=== PATIENT | male | born 1960 | race Caucasian/White ===

== ENCOUNTER 2019-02-08 07:20 | Day surgery (SDC) | payer OTHER, MEDICARE ==
[~2019-02-08] VITALS: Ht 177.8 cm; Wt 65.9 kg
[~2019-02-08 07:20] MED LIST: AMPICILLIN SODIUM 1 GM/VIAL ONE; ASPI81 PO; BENZ2TAB10 PO; CYAN250014 PO; DIPH50 PO; ESCI10TA PO; FOLI1 PO; GABA-529 PO; HALO2 PO; LEVO50 PO; LISI-662 PO; LORA0.5T2 PO; METO25XL PO; MULT-959 PO; OMEG10005 PO; OXYMETAZOLINE HCL 0.05% 15 ML NASAL SPRAY NASAL ONE; RINGERS SOLUTION,LACTATED 1,000 ML IV ONE; SIMV-260 PO
[2019-02-08] MEDS ORDERED: FentaNYL CITRATE-PF 100 MCG/2 ML VIAL IVP PRN (07:30)
[2019-02-08] MEDS ORDERED: MEPERIDINE-PF 25 MG/ML VIAL IVP PRN (07:30)
[2019-02-08] MEDS ORDERED: HYDROmorphone 2 MG/ML SYRINGE IVP PRN (07:30)
[2019-02-08 08:06] LABS: BASOPHILS % (AUTO) 0.8 % (0.0-2.0); HEMATOCRIT 41.5 % (41-53); HEMOGLOBIN 13.6 g/dL (13.5-17.5); LYMPHOCYTES # (AUTO) 0.9 K/uL (1.0-4.8); LYMPHOCYTES % (AUTO) 19.3 % (22.0-44.0); MEAN CORPUSCULAR HEMOGLOBIN 30.8 pg (26.0-34.0); MEAN CORPUSCULAR HGB CONC 32.9 G/dL (31.0-37.0); MEAN CORPUSCULAR VOLUME 94 fL (80-100); MONOCYTES # (AUTO) 0.5 K/uL (0.1-1.0); MONOCYTES % (AUTO) 10.1 % (2.0-9.0); NEUTROPHILS # (AUTO) 3.3 K/uL (1.8-7.7); NEUTROPHILS % (AUTO) 68.8 % (40.0-70.0); PLATELET COUNT (AUTO) 212 K/uL (150-450); RED BLOOD CELL COUNT(AUTO) 4.43 MIL/uL (4.50-5.90); RED CELL DISTRIBUTION WIDTH 13.7 % (11.5-14.5)
[2019-02-08 08:15] LABS: ANION GAP 10 mmol/L (8-16); CALCIUM, TOTAL 9.3 mg/dL (8.8-10.5); CARBON DIOXIDE 25 mmol/L (22-29); CHLORIDE 103 mmol/L (98-107); GLOMERULAR FILTR. RATE CALC > 60 mL/min (>60); GLUCOSE,RANDOM 116 mg/dL (70-110); SODIUM SERUM 138 mmol/L (136-145); UREA NITROGEN, BLOOD 7 mg/dL (7-18)
[2019-02-08 08:20] LABS: ALANINE AMINOTRANSFERASE 22 U/L (12-78); ALBUMIN 3.9 g/dL (3.4-5.0); ALKALINE PHOSPHATASE 92 U/L (46-116); ASPARTATE AMINOTRANSFERASE 21 U/L (15-37); BILIRUBIN,TOTAL 0.7 mg/dL (0.1-1.0); TOTAL PROTEIN, SERUM 7.5 g/dL (6.4-8.2)
[2019-02-08 08:32] LABS: PROTHROMBIN TIME 10.1 SEC (9.4-11.6)
[2019-02-08] MEDS ORDERED: SODIUM CHLORIDE 0.9% 100 ML ONE (09:18)
[2019-02-08] MEDS ORDERED: ONDANSETRON HCL 4 MG/2 ML VIAL IVP ONE (12:00)
[2019-02-08] MEDS ORDERED: FentaNYL CITRATE-PF 100 MCG/2 ML VIAL IVP ONE (12:00)
[2019-02-08] MEDS ORDERED: PROPOFOL 1% 20 ML VIAL IVP ONE (12:00)
[2019-02-08] MEDS ORDERED: SUCCINYLCHOLINE CHLORIDE 20 MG/ML 10 ML VIAL IVP ONE (12:00)
[2019-02-08] MEDS ORDERED: DEXAMETHASONE SOD PHOS 4 MG/ML VIAL IVP ONE (12:00)
== END 2019-02-08 12:35 | disposition home or self-care (01) ==
LOC: SURGERY 07:20
PROVIDERS: ATTEND Dentist General Practice
DX: K05.30 Chronic periodontitis, unspecified (principal); K03.6 Deposits [accretions] on teeth; K05.10 Chronic gingivitis, plaque induced; I10 Essential (primary) hypertension; E78.5 Hyperlipidemia, unspecified; F71 Moderate intellectual disabilities; F84.0 Autistic disorder; H40.9 Unspecified glaucoma; E05.90 Thyrotoxicosis, unspecified without thyrotoxic crisis or storm; J31.0 Chronic rhinitis; F41.9 Anxiety disorder, unspecified; Z79.899 Other long term (current) drug therapy; Z79.01 Long term (current) use of anticoagulants; Z91.041 Radiographic dye allergy status; Z98.890 Other specified postprocedural states
CPT/HCPCS: 36415; 41899; 71045; 80053; 85025; 85610; 85730; 93005; J0290; J0330; J1100; J2405; J2704; J3010; J7050; J7120

== ENCOUNTER 2020-12-25 06:30 | Day surgery (SDC) | payer OTHER, MEDICARE ==
[~2020-12-25] VITALS: Ht 177.8 cm; Wt 65.9 kg
[~2020-12-25 06:30] MED LIST changes: -AMPICILLIN SODIUM 1 GM/VIAL ONE; +ASPI-1450 PO; -ASPI81 PO; +ESCI-8 PO; -ESCI10TA PO; +FOLI-130 PO; -FOLI1 PO; +GABA-1216 PO; -GABA-529 PO; -LISI-662 PO; +LISI-894 PO; +LORA-999 PO; -LORA0.5T2 PO; -OXYMETAZOLINE HCL 0.05% 15 ML NASAL SPRAY NASAL ONE
[2020-12-25 06:55] LABS: COVID AG,FIA SOURCE NASOPHARYNGEAL
[2020-12-25] MEDS ORDERED: RINGERS SOLUTION,LACTATED 1,000 ML IV ONE (07:00)
[2020-12-25] MEDS ORDERED: AMPICILLIN SODIUM 2 GM/NS 100 ML IV ONE (07:15)
[2020-12-25 07:47] LABS: BASOPHILS % (AUTO) 0.7 % (0.0-2.0); EOSINOPHILS % (AUTO) 1.2 % (1.0-6.0); HEMATOCRIT 34.2 % (41-53); HEMOGLOBIN 11.2 g/dL (13.5-17.5); LYMPHOCYTES # (AUTO) 1.6 K/uL (1.0-4.8); LYMPHOCYTES % (AUTO) 18.9 % (22.0-44.0); MEAN CORPUSCULAR HEMOGLOBIN 30.9 pg (26.0-34.0); MEAN CORPUSCULAR HGB CONC 32.8 G/dL (31.0-37.0); MEAN CORPUSCULAR VOLUME 94 fL (80-100); MONOCYTES # (AUTO) 0.8 K/uL (0.1-1.0); MONOCYTES % (AUTO) 9.6 % (2.0-9.0); NEUTROPHILS # (AUTO) 5.9 K/uL (1.8-7.7); NEUTROPHILS % (AUTO) 69.6 % (40.0-70.0); PLATELET COUNT (AUTO) 263 K/uL (150-450); RED BLOOD CELL COUNT(AUTO) 3.63 MIL/uL (4.50-5.90); RED CELL DISTRIBUTION WIDTH 14.4 % (11.5-14.5)
[2020-12-25 07:58] LABS: ANION GAP 6 mmol/L (8-16); CALCIUM, TOTAL 8.5 mg/dL (8.8-10.5); CARBON DIOXIDE 27 mmol/L (22-29); CHLORIDE 106 mmol/L (98-107); CREATININE 0.92 mg/dL (0.60-1.30); GLOMERULAR FILTR. RATE CALC > 60 mL/min (>60); GLUCOSE,RANDOM 102 mg/dL (70-110); POTASSIUM 4.5 mmol/L (3.5-5.1); SODIUM SERUM 139 mmol/L (136-145); UREA NITROGEN, BLOOD 10 mg/dL (7-18)
[2020-12-25 08:02] LABS: PROTHROMBIN TIME 10.3 SEC (9.4-11.6)
[2020-12-25] MEDS ORDERED: HYDROmorphone 2 MG/ML VIAL IVP PRN (10:45)
[2020-12-25] MEDS ORDERED: FentaNYL CITRATE PF 100 MCG/2 ML VIAL IVP PRN (10:45)
[2020-12-25] MEDS ORDERED: OXYGEN THERAPY IH SCH (20:00)
== END 2020-12-25 12:10 | disposition home or self-care (01) ==
LOC: SURGERY 06:30
PROVIDERS: ATTEND Dentist General Practice
DX: K02.9 Dental caries, unspecified (principal); K05.30 Chronic periodontitis, unspecified; K03.6 Deposits [accretions] on teeth; I10 Essential (primary) hypertension; F84.0 Autistic disorder; F42.8 Other obsessive-compulsive disorder; E78.5 Hyperlipidemia, unspecified; Z79.899 Other long term (current) drug therapy; Z98.890 Other specified postprocedural states; Z91.041 Radiographic dye allergy status
CPT/HCPCS: 36415; 41899; 71045; 80048; 85025; 85610; 85730; 87426; 93005; C9803; J0290; J7120